=== PATIENT | female | born 1995 | race Caucasian/White ===

== ENCOUNTER 2018-12-09 02:43 | Emergency (ER) | payer BC ==
[2018-12-09] MEDS ORDERED: diphenhydrAMINE HCL 25 MG CAPSULE (FP) PO ONE ×2 (02:52→02:59)
[2018-12-09 02:54] VITALS: BP 156/71; PULSE 98; TEMP 98.3; BMI 42.4
--- NOTE | 2018-12-09 02:56 | PDOC ---
History of Present Illness - General Chief Complaint: Allergic Reaction Stated Complaint: ALLERGY TO RABBIT Time Seen by Provider: 12/09/18 02:51 - History of Present Illness Initial Comments: This 23-year-old woman with no significant past medical history presents with bilateral eyelid edema, pruritus and conjunctival injection that occurred soon after she held a pet rabbit. Patient states that her sister was babysitting for a family that had a pet rabbit this evening. Soon after the patient held the rabbit, she noted itching in her eyes followed by swelling. Patient had never been in close contact to a rabbit before. She states that she was recently told that she had ALLERGIES. She denies lip swelling or tingling/ tongue edema or difficulty with swallowing/breathing. She has not taken any medication for the current symptoms. No history of asthma or eczema Past History - Past Medical History Allergies/Adverse Reactions: Allergies Allergy/AdvReac Type Severity Reaction Status Date / Time No Known Allergies Allergy Verified 12/09/18 02:44 Home Medications: Ambulatory Orders Olopatadine HCl 2 drop OU BID #1 bottle 12/09/18 Review of Systems - Review of Systems Able to Perform ROS?: Yes Comments:: 12 point review of systems is negative except for what is noted in the history of present illness *Physical Exam - Physical Exam Comments: GENERAL: Young adult female, alert and oriented 3, in no acute distress HEAD: Normal with no signs of trauma. EYES: Moderate bilateral upper and lower eyelid edema; bilateral conjunctival injection; no corneal clouding or anterior chamber/pupil abnormality ENT: Ears normal, nares patent, oropharynx clear without exudates. Dry mucous membranes. No lip/tongue/uvular edema NECK: Normal range of motion, supple without lymphadenopathy, JVD, or masses.No stridor LUNGS: Breath sounds equal, clear to auscultation bilaterally. No wheezes, and no crackles. HEART:Regular rate and rhythm, normal S1 and S2 without murmur, rub or gallop. ABDOMEN:.normal bowel sounds No guarding,tenderness or rebound.No masses No distention. EXTREMITIES: Normal range of motion, no edema. No clubbing or cyanosis. No erythema, or tenderness. NEUROLOGICAL: Cranial nerves II through XII grossly intact. Normal speech. No focal neurological deficits. MUSCULOSKELETAL: Back non-tender to palpation, no CVA tenderness SKIN: Warm, Dry, normal turgor, no rashes or lesions noted. Medical Decision Making - Medical Decision Making This otherwise healthy 23-year-old woman presents with a few hour history of increasing edema, pruritus and inflammation of bilateral eyes soon after holding a pet rabbit. Patient has had no previous exposure to rabbits and was recently found to be ALLERGIC to cats. She has no complaints related to airway. Exam reveals evidence of bilateral ALLERGIC conjunctivitis but no lip/ tongue/uvular edema or stridor/wheezing. Clinical presentation consistent with ALLERGIC conjunctivitis. At this time, there is no evidence of airway compromise or urticaria. Benadryl 25 mg PO given here in the ER. She should continue to take this every 6 hours as needed for persistent pruritus. Also, prescription for Patanol eyedrops sent to her pharmacy: 2 drops in each eye twice a day for the next 5-7 days. Meanwhile, she should avoid exposure to rabbits or cats. She should plan on following up with her doctor and also have a full ophthalmologic exam ( Dr. Cervantes/Dejuan referral information given). If she has any lip/tongue swelling or has difficulty swallowing/breathing, she should return to the emergency room immediately. Patient inquired about ALLERGY treatment/testing and was given referral information for at [facility] in [place] *DC/Admit/Observation/Transfer Diagnosis at time of Disposition: Allergic conjunctivitis Qualifiers: Laterality: bilateral Qualified Code(s): H10.13 - Acute atopic conjunctivitis, bilateral - Discharge Dispostion Disposition: HOME Condition at time of disposition: Stable - Prescriptions Prescriptions: Olopatadine HCl 2 drop OU BID #1 bottle - Referrals Referrals: Eriberto Cervantes MD [Staff Physician] - - Patient Instructions Printed Discharge Instructions: DI for Eye Allergic Reaction Additional Instructions: Avoid exposure to rabbits and cats Cool compresses to eyes/keep head elevated as much as possible for the next few days Benadryl 25 mg up to 4 times a day as needed for itching; this medication will make you sleepy During the day, you can use nonsedating antihistamine such as Claritin/Zyrtec Patanol eye drops: 2 drops in each eye twice a day for 1 week Follow-up with telecommunications professional (Alphonse Cervantes/Dejuan) within 3-4 days Return to ER if you have lip/tongue swelling or experienced difficulty swallowing/breathing - Post Discharge Activity
== END 2018-12-09 03:14 | disposition home or self-care (01) ==
LOC: EDBD → FER 02:43
DX: H10.13 Acute atopic conjunctivitis, bilateral (principal)
CPT/HCPCS: 99281-25